=== PATIENT | female | born 1950 | race African-American/Black ===

== ENCOUNTER 2025-03-06 10:04 | Emergency (ER) | payer MEDICARE, MEDICAID ==
[~2025-03-06] VITALS: Ht 160 cm; Wt 49.0 kg
[2025-03-06 10:13] VITALS: O2SAT 98
[2025-03-06 11:42] LABS: BASOPHILS % 0.3 % (0.0-2.0); EOSINOPHILS % 1.5 % (0.0-5.0); HEMATOCRIT. 37.6 % (36.0-48.0); HEMOGLOBIN. 12.1 g/dL (12.0-16.0); LYMPHOCYTES % 9.9 % (20.0-50.0); MEAN PLATELET VOLUME 9.8 fl (7.4-10.4); MONOCYTES % 5.8 % (2.0-8.0); NEUTROPHILS % 82.5 % (40.0-76.0); PLATELET 246 x1000/uL (130-400); RED BLOOD CELL COUNT 3.98 mill/uL (4.2-5.4); RED CELL DISTRIBUTION WIDTH 14.5 % (11.6-14.6)
[2025-03-06 11:44] LABS: CREATININE 1.1 mg/dL (0.6-1.0); UREA NITROGEN BLOOD 8.0 mg/dL (9-23)
[2025-03-06] MEDS ORDERED: METR-167 MT (13:09)
[2025-03-06] MEDS ORDERED: CEFP200T13 MT (13:09)
[2025-03-06] MEDS ORDERED: IOHEXOL-300 100 ML BOTTLE ONE (13:38)
[2025-03-06 13:48] VITALS: BP 178/73; PULSE 88; RESP 16; TEMP 36.9; O2SAT 98
== END 2025-03-06 14:37 | disposition home or self-care (01) ==
LOC: ER 10:04
DX: L02.31 Cutaneous abscess of buttock (principal); I10 Essential (primary) hypertension
CPT/HCPCS: 99285; 74177; 10060; 80048; 85025; 36415; Q9967